=== PATIENT | female | born 1990 | race Caucasian/White ===

== ENCOUNTER 2017-01-14 16:37 | Emergency (ER) | payer MEDICAID ==
[~2017-01-14] VITALS: Ht 160 cm; Wt 61.7 kg
[~2017-01-14 16:37] MED LIST: ORTHO TRI CYCLEN
[2017-01-14 17:19] LABS: Urine Bilirubin Negative (Negative); Urine Blood Negative /uL (Negative); Urine Color Yellow (Yellow); Urine Glucose Normal (Normal); Urine Mucus MODERATE (None Seen); Urine Nitrite Negative (Negative); Urine RBC 64 /hpf (0 - 4); Urine Squamous Epithelial Cell MANY /hpf (<5); Urine Urobilinogen Normal (Negative); Urine pH 5.5 (5.0-8.0)
[2017-01-14 17:21] LABS: Urine Ketone 1+ (Negative)
[2017-01-14 17:23] LABS: Basophils # (auto) 0 uL; Basophils % (auto) 0.1 % (0.0-2.0); CONDITION Y; Eosinophils # (auto) 0.1 uL; Hematocrit 37.4 % (36.0-46.0); Hemoglobin 13.1 g/dL (12.2-16.2); Lymphocytes # (auto) 1.3 uL; Mean Corpuscular Hemoglobin 30.4 pg (28.0-32.0); Mean Platelet Volume 8.4 fL (7.4-10.4); Monocytes # (auto) 0.4 uL; Monocytes % (auto) 5.8 % (0.0-12.0); Neutrophils # (auto) 5.4 uL; Neutrophils % (auto) 75.1 % (37.0-80.0); Platelet Count (auto) 219 10^3/uL (140-450); Red Cell Distribution Width 13.2 % (11.6-16.0); White Blood Cell 7.2 10^3/uL (4.4-10.8)
[2017-01-14 17:42] LABS: Albumin 3.4 g/dL (3.4-5.0); BUN/Creatinine Ratio 21.2; Bilirubin, Total 0.3 mg/dL (0.2-1.0); Calcium 8.8 mg/dL (8.5-10.1); Potassium 3.8 mmol/L (3.5-5.1); Total Protein 7.1 g/dL (6.4-8.2)
[2017-01-15] MEDS ORDERED: ONDANSETRON HCL 4 MG/2 ML VIAL IV ONE (02:00)
[2017-01-15] MEDS ORDERED: SODIUM CHLORIDE 0.9% 1,000 ML IV ONE (02:00)
[2017-01-15 02:07] VITALS: BP 111/64
== END 2017-01-15 04:19 | disposition home or self-care (01) ==
LOC: ER 16:43
DX: O23.42 Unspecified infection of urinary tract in pregnancy, second trimester (principal); Z3A.26 26 weeks gestation of pregnancy; F12.10 Cannabis abuse, uncomplicated
CPT/HCPCS: 36415; 76801; 80053; 81001; 84702; 85025; 86901; 96361; 96374; 99285; J2405; J7030

== ENCOUNTER 2017-05-12 12:25 | Observation (INO) | payer MEDICAID | END 2017-05-12 13:50 | disposition home or self-care (01) | DRG 566 | LOC: LDRP 12:25 | PROVIDERS: ADMIT Specialist; ATTEND Specialist | DX: O40.3XX0 Polyhydramnios, third trimester, not applicable or unspecified (principal); O26.893 Other specified pregnancy related conditions, third trimester; R51 Headache; Z3A.29 29 weeks gestation of pregnancy; Z87.891 Personal history of nicotine dependence | CPT/HCPCS: 59025; 76815; 81002; G0378 ==

== ENCOUNTER 2017-05-12 14:03 | Emergency (ER) | payer MEDICAID ==
[~2017-05-12] VITALS: Ht 160 cm; Wt 79.8 kg
[2017-05-12 14:36] LABS: Urine RBC None Seen /hpf (0 - 4)
[2017-05-12 14:41] LABS: Basophils # (auto) 0 uL; Basophils % (auto) 0.3 % (0.0-2.0); Eosinophils # (auto) 0 uL; Eosinophils % (auto) 0.6 % (0.0-7.0); Hematocrit 37.2 % (36.0-46.0); Hemoglobin 12.9 g/dL (12.2-16.2); Lymphocytes # (auto) 1.3 uL; Lymphocytes % (auto) 15.4 % (10.0-50.0); Mean Corpuscular Hemoglobin 30.6 pg (28.0-32.0); Mean Corpuscular Hgb Conc. 34.8 g/dL (32.0-36.0); Mean Platelet Volume 7.4 fL (6.9-10.8); Monocytes # (auto) 0.5 uL; Monocytes % (auto) 6.3 % (0.0-12.0); Neutrophils # (auto) 6.4 uL; Neutrophils % (auto) 77.4 % (37.0-80.0); Platelet Count (auto) 177 10^3/uL (140-450); Red Cell Distribution Width 13.3 % (11.8-14.3); White Blood Cell 8.2 10^3/uL (4.4-10.8)
[2017-05-12 14:53] LABS: Urine Bilirubin Negative (Negative); Urine Blood Negative /uL (Negative); Urine Color Colorless (Yellow); Urine Glucose Normal (Normal); Urine Ketone Negative (Negative); Urine Nitrite Negative (Negative); Urine Squamous Epithelial Cell FEW /hpf (<5); Urine Urobilinogen Normal (Negative); Urine pH 5.5 (5.0-8.0)
[2017-05-12 15:03] LABS: Alkaline Phosphatase 102 U/L (45-117); Anion Gap 7 (5-15); Aspartate Aminotransferase 17 U/L (15-37); BUN/Creatinine Ratio 24.5; Bilirubin, Total 0.2 mg/dL (0.2-1.0); Blood Urea Nitrogen 12 mg/dL (7-18); Calcium 8.8 mg/dL (8.5-10.1); Carbon Dioxide 25 mmol/L (21-32); Chloride 106 mmol/L (98-107); GFR African American 195 mL/min; GFR Non-African American 161 mL/min; Glucose 83 mg/dL (74-106); Potassium 3.7 mmol/L (3.5-5.1); Sodium 138 mmol/L (136-145); Total Protein 7.2 g/dL (6.4-8.2)
[2017-05-12 15:48] VITALS: BP 102/53
== END 2017-05-12 17:02 | disposition home or self-care (01) ==
LOC: ER 14:03
DX: O26.893 Other specified pregnancy related conditions, third trimester (principal); Z3A.29 29 weeks gestation of pregnancy; O99.333 Smoking (tobacco) complicating pregnancy, third trimester; Z88.8 Allergy status to other drugs, medicaments and biological substances
CPT/HCPCS: 36415; 80053; 81001; 82962; 84484; 85025; 93005

== ENCOUNTER 2017-07-01 14:20 | Observation (INO) | payer MEDICAID | END 2017-07-01 15:25 | disposition home or self-care (01) | DRG 566 | LOC: LDRP 14:20 | PROVIDERS: ADMIT Specialist; ATTEND Specialist | DX: O42.90 Premature rupture of membranes, unspecified as to length of time between rupture and onset of labor, unspecified weeks of gestation (principal); Z3A.00 Weeks of gestation of pregnancy not specified | CPT/HCPCS: 59025; 81002; G0378 ==

== ENCOUNTER 2017-07-18 08:05 | Inpatient (IN) | payer MEDICAID ==
[~2017-07-18] VITALS: Ht 160 cm; Wt 86.6 kg
[2017-07-18] MEDS ORDERED: LACTATED RINGER'S 1,000 ML IV SCH (08:53)
[2017-07-18] MEDS ORDERED: PREN-96 PO (09:15)
[2017-07-18 10:06] LABS: Basophils # (auto) 0 uL; Basophils % (auto) 0.3 % (0.0-2.0); Eosinophils # (auto) 0.1 uL; Eosinophils % (auto) 0.7 % (0.0-7.0); Hematocrit 37.5 % (36.0-46.0); Hemoglobin 12.9 g/dL (12.2-16.2); Lymphocytes # (auto) 1.3 uL; Lymphocytes % (auto) 18.6 % (10.0-50.0); Mean Corpuscular Hemoglobin 29.9 pg (28.0-32.0); Mean Corpuscular Hgb Conc. 34.5 g/dL (32.0-36.0); Mean Corpuscular Volume 86.7 fL (80.0-100.0); Monocytes # (auto) 0.4 uL; Monocytes % (auto) 5.9 % (0.0-12.0); Neutrophils # (auto) 5.3 uL; Neutrophils % (auto) 74.5 % (37.0-80.0); Nucleated Red Blood Cells % 0.1 %; Platelet Count (auto) 134 10^3/uL (140-450); Red Blood Cells 4.33 10^6/uL (4.0-5.20); Red Cell Distribution Width 13.6 % (11.8-14.3); White Blood Cell 7.2 10^3/uL (4.4-10.8)
[2017-07-18 10:14] LABS: Alcohol, Urine < 3.0 mg/dL (0-5); Amphetamine Screen, Urine NEGATIVE (NEGATIVE); Barbiturate Scree,Urine NEGATIVE (NEGATIVE); Benzodiazephine Screen, Urine NEGATIVE (NEGATIVE); Cannabinoid Screen, Urine NEGATIVE (NEGATIVE); Cocaine Screen, Urine NEGATIVE (NEGATIVE); Opiate Scree,Urine NEGATIVE (NEGATIVE); Phencyclidine Screen, Urine NEGATIVE (NEGATIVE)
[2017-07-18 10:16] LABS: Urine Bacteria FEW /hpf (None Seen); Urine Blood Negative /uL (Negative); Urine Specific Gravity 1.007 (1.001-1.035); Urine WBC <1 /hpf (0 - 5)
[2017-07-18 10:16] LABS: INR 0.93 (0.9-1.15); Partial Thromboplastin Time 28.2 sec (22.64-33.71); Prothrombin Time 10.1 sec (9.37-12.3)
[2017-07-18 10:18] LABS: Albumin 2.7 g/dL (3.4-5.0); BUN/Creatinine Ratio 14.6; Bilirubin, Total 0.3 mg/dL (0.2-1.0); Calcium 8.2 mg/dL (8.5-10.1); Potassium 3.7 mmol/L (3.5-5.1); Total Protein 6.4 g/dL (6.4-8.2)
[2017-07-18] MEDS ORDERED: TETRACAINE 1% INJ 2 ML VIAL IJ ONE (12:48)
[2017-07-18] MEDS ORDERED: ONDANSETRON HCL 4 MG/2 ML VIAL ONE (12:52)
[2017-07-18] MEDS ORDERED: fentaNYL CITRATE 100 MCG/2 ML VL ONE (12:52)
[2017-07-18] MEDS ORDERED: MIDAZOLAM HCL 1MG/1ML-2 ML VIAL ONE (12:52)
[2017-07-18] MEDS ORDERED: SODIUM CHLORIDE LOCK 10 ML ONE (12:52)
[2017-07-18] MEDS ORDERED: MORPHINE SULF(PF) 0.5MG/ML 10ML VIAL ONE (12:52)
[2017-07-18] MEDS: LACTATED RINGER'S 1,000 ML IV SCH ×2 (14:35→22:35)
[2017-07-18] MEDS ORDERED: METOCLOPRAMIDE HCL 5MG/ml INJ 2ml VIAL IV ONE (14:45)
[2017-07-18] MEDS ORDERED: HYDROmorphone HCL 2 MG/ML VL IV PRN ×2 (14:45)
[2017-07-18] MEDS ORDERED: KETOROLAC TROMETH 30 MG/ML 1ML VIAL IV ONE (14:45)
[2017-07-18] MEDS ORDERED: ONDANSETRON HCL 4 MG/2 ML VIAL IV PRN (14:45)
[2017-07-18] MEDS ORDERED: ceFAZolin 1GM/50ML 50 ML IV SCH (15:15)
[2017-07-18 15:30] VITALS: BP 136/80
[2017-07-18 16:00] VITALS: BP 122/76
[2017-07-18 17:00] VITALS: BP 119/67
[2017-07-18] MEDS: LACT. RINGERS/OXYTOCIN 20UNITS 1,000 ML IV SCH ×2 (17:50→23:53)
[2017-07-18] MEDS: KETOROLAC TROMETH 30 MG/ML 1ML VIAL IV SCH ×2 (17:59→23:36)
[2017-07-18 18:00] VITALS: BP 108/53
[2017-07-18 20:00] VITALS: BP 112/64
[2017-07-18] MEDS: ceFAZolin 1GM/50ML 50 ML IV SCH (22:05)
[2017-07-18 23:44] VITALS: BP 108/63
[2017-07-19] MEDS: LACTATED RINGER'S 1,000 ML IV SCH ×3 (02:00→19:28)
[2017-07-19 04:12] VITALS: BP 99/59
[2017-07-19] MEDS: KETOROLAC TROMETH 30 MG/ML 1ML VIAL IV SCH (05:30)
[2017-07-19] MEDS: ceFAZolin 1GM/50ML 50 ML IV SCH ×2 (05:57→13:55)
[2017-07-19 08:08] VITALS: BP 94/55
[2017-07-19 08:58] LABS: Basophils # (auto) 0 uL; Basophils % (auto) 0.3 % (0.0-2.0); Eosinophils # (auto) 0 uL; Eosinophils % (auto) 0.5 % (0.0-7.0); Hematocrit 32.6 % (36.0-46.0); Hemoglobin 11.2 g/dL (12.2-16.2); Lymphocytes # (auto) 1.1 uL; Lymphocytes % (auto) 13.2 % (10.0-50.0); Mean Corpuscular Hemoglobin 30.2 pg (28.0-32.0); Mean Corpuscular Hgb Conc. 34.4 g/dL (32.0-36.0); Mean Corpuscular Volume 87.9 fL (80.0-100.0); Monocytes # (auto) 0.5 uL; Monocytes % (auto) 5.5 % (0.0-12.0); Neutrophils % (auto) 80.5 % (37.0-80.0); Platelet Count (auto) 117 10^3/uL (140-450); Red Blood Cells 3.71 10^6/uL (4.0-5.20); Red Cell Distribution Width 13.8 % (11.8-14.3); White Blood Cell 8.7 10^3/uL (4.4-10.8)
[2017-07-19] MEDS ORDERED: BISACODYL 10 MG RECT SUPP PR PRN (09:30)
[2017-07-19] MEDS: DOCUSATE CALCIUM 240 MG CAP PO SCH (10:00)
[2017-07-19] MEDS: SIMETHICONE 80 MG CHEWABLE TABLET PO SCH ×4 (10:00→22:10)
[2017-07-19] MEDS: IBUPROFEN 800 MG TAB PO PRN ×2 (10:00→17:39)
[2017-07-19] MEDS: DOCUSATE SOD 100 MG CAP PO SCH ×2 (10:00→22:10)
[2017-07-19 12:30] VITALS: BP 104/65
[2017-07-19 15:54] VITALS: BP 105/60
[2017-07-19 20:00] VITALS: BP 94/72
[2017-07-19] MEDS: HYDROcodone-ACET 5/325MG TAB PO PRN (22:11)
[2017-07-19 23:30] VITALS: BP 106/62
[2017-07-20] VITALS (7 sets, daily range): BP systolic 97–119; BP diastolic 52–75
[2017-07-20] MEDS: IBUPROFEN 800 MG TAB PO PRN ×3 (01:51→18:00)
[2017-07-20] MEDS: SIMETHICONE 80 MG CHEWABLE TABLET PO SCH ×4 (05:30→23:00)
[2017-07-20] MEDS: HYDROcodone-ACET 5/325MG TAB PO PRN ×3 (05:33→23:46)
[2017-07-20] MEDS: DOCUSATE SOD 100 MG CAP PO SCH ×2 (10:00→21:02)
[2017-07-20] MEDS: DOCUSATE CALCIUM 240 MG CAP PO SCH (10:00)
[2017-07-21] MEDS: IBUPROFEN 800 MG TAB PO PRN ×2 (02:06→10:42)
[2017-07-21 03:30] VITALS: BP 103/63
[2017-07-21] MEDS: SIMETHICONE 80 MG CHEWABLE TABLET PO SCH ×3 (06:00→18:07)
[2017-07-21] MEDS: HYDROcodone-ACET 5/325MG TAB PO PRN ×2 (06:00→16:32)
[2017-07-21 07:55] VITALS: BP 108/67
[2017-07-21] MEDS: DOCUSATE CALCIUM 240 MG CAP PO SCH (10:00)
[2017-07-21] MEDS: DOCUSATE SOD 100 MG CAP PO SCH (10:00)
[2017-07-21 11:45] VITALS: BP 112/67
[2017-07-21 16:00] VITALS: BP 129/76
[2017-07-21 20:23] VITALS: BP 117/77
[2017-07-21 20:50] VITALS: BP 117/77
== END 2017-07-21 20:50 | disposition home or self-care (01) | DRG 540 ==
LOC: LDRP 08:05
PROVIDERS: ADMIT Specialist; ATTEND Specialist
PROC: 10D00Z1 Extraction of Products of Conception, Low, Open Approach (ICD-10-PCS; principal; 2017-07-18 13:14)
DX: O34.211 Maternal care for low transverse scar from previous cesarean delivery (principal); O99.324 Drug use complicating childbirth; F19.10 Other psychoactive substance abuse, uncomplicated; O69.81X0 Labor and delivery complicated by cord around neck, without compression, not applicable or unspecified; Z3A.39 39 weeks gestation of pregnancy; Z37.0 Single live birth; Z88.8 Allergy status to other drugs, medicaments and biological substances; Z87.891 Personal history of nicotine dependence
CPT/HCPCS: 36415; 59025; 80053; 80307; 81001; 85025; 85610; 85730; 86850; 86900; 86901; 94760; 96361; 96365; 96366; 96374; 96375; J0690; J1885; J2250; J2405; J2590

== ENCOUNTER 2017-09-30 05:23 | Day surgery (SDC) | payer MEDICAID ==
[~2017-09-30] VITALS: Ht 160 cm; Wt 77.1 kg
[~2017-09-30 05:23] MED LIST changes: -ORTHO TRI CYCLEN; +PREN-96 PO
[2017-09-30 06:08] LABS: Basophils # (auto) 0.1 uL; Basophils % (auto) 1.1 % (0.0-2.0); Eosinophils # (auto) 0.1 uL; Eosinophils % (auto) 2.1 % (0.0-7.0); Hematocrit 40.8 % (36.0-46.0); Hemoglobin 13.7 g/dL (12.2-16.2); Lymphocytes % (auto) 39.1 % (10.0-50.0); Mean Corpuscular Hemoglobin 28.7 pg (28.0-32.0); Mean Corpuscular Hgb Conc. 33.6 g/dL (32.0-36.0); Mean Corpuscular Volume 85.2 fL (80.0-100.0); Monocytes # (auto) 0.4 uL; Neutrophils # (auto) 2.5 uL; Neutrophils % (auto) 49.7 % (37.0-80.0); Nucleated Red Blood Cells % 0.1 %; Platelet Count (auto) 203 10^3/uL (140-450); Red Blood Cells 4.79 10^6/uL (4.0-5.20); Red Cell Distribution Width 12.7 % (11.8-14.3); White Blood Cell 5.1 10^3/uL (4.4-10.8)
[2017-09-30 06:12] LABS: Urine Bacteria NONE SEEN /hpf (None Seen); Urine Blood Negative /uL (Negative); Urine Mucus MANY (None Seen); Urine Specific Gravity 1.031 (1.001-1.035); Urine WBC 15 /hpf (0 - 5)
[2017-09-30 06:21] LABS: INR 0.99 (0.9-1.15); Prothrombin Time 10.8 sec (9.37-12.3)
[2017-09-30 06:25] LABS: Albumin 3.8 g/dL (3.4-5.0); BUN/Creatinine Ratio 23.7; Calcium 9.2 mg/dL (8.5-10.1); Potassium 3.8 mmol/L (3.5-5.1)
[2017-09-30 06:26] LABS: Bilirubin, Total 0.5 mg/dL (0.2-1.0)
[2017-09-30] MEDS ORDERED: LACTATED RINGER'S 1,000 ML IV ONE (07:00)
[2017-09-30] MEDS ORDERED: ceFAZolin 1GM/50ML 50 ML IV ONE (09:43)
[2017-09-30] MEDS ORDERED: IODINE STRONG 5% SOLN 473ML ONE (09:53)
[2017-09-30] MEDS ORDERED: FERRIC SUBSULFATE TOPICAL SOLN 30 ML BTL ONE (09:53)
[2017-09-30] MEDS ORDERED: MIDAZOLAM HCL 1MG/1ML-2 ML VIAL ONE (10:05)
[2017-09-30] MEDS ORDERED: fentaNYL CITRATE 100 MCG/2 ML VL ONE (10:05)
[2017-09-30] MEDS ORDERED: MEPERIDINE HCL (50 MG/ML) 1 ML VIAL ONE (10:05)
[2017-09-30] MEDS ORDERED: DEXAMETHASONE SOD PHOS 10MG/1ML VIAL INJ ONE (10:05)
[2017-09-30] MEDS ORDERED: PROPOFOL 10 MG/ML 20 ML IV ONE (10:05)
[2017-09-30] MEDS ORDERED: KETOROLAC TROMETH 30 MG/ML 1ML VIAL ONE (10:05)
[2017-09-30] MEDS ORDERED: LACTATED RINGER'S 1,000 ML IV SCH (10:54)
[2017-09-30] MEDS ORDERED: ONDANSETRON HCL 4 MG/2 ML VIAL IV PRN (11:00)
[2017-09-30 11:54] VITALS: BP 114/78
== END 2017-09-30 12:04 | disposition home or self-care (01) ==
LOC: ER 05:23 → SUR 05:24 → ER 09:23 → SUR 12:04
PROVIDERS: ATTEND Specialist
DX: D06.9 Carcinoma in situ of cervix, unspecified (principal); Z91.02 Food additives allergy status; Z88.8 Allergy status to other drugs, medicaments and biological substances; F41.9 Anxiety disorder, unspecified; F17.210 Nicotine dependence, cigarettes, uncomplicated
CPT/HCPCS: 57520; J2175; J3010; 36415; 80053; 81001; 84702; 85025; 85610; 85730; 86850; 86900; 86901; J0690; J1100; J1885; J2250; J2704